=== PATIENT | female | born 1970 | race Caucasian/White ===

== ENCOUNTER → 2020-11-01 | Outpatient (REF) | payer BC | LOC: M SFHCWAGY 12:58 | PROVIDERS: ATTEND Advanced Practice Midwife | DX: Z12.4 Encounter for screening for malignant neoplasm of cervix (principal); Z01.419 Encounter for gynecological examination (general) (routine) without abnormal findings ==

== ENCOUNTER → 2020-11-01 | Outpatient (CLI) | payer BC ==
[2020-11-01 11:57] LABS: HEMATOCRIT 37.1 % (36.0-47.0); HEMOGLOBIN 11.5 g/dl (12.0-15.5); MEAN CORPUSCULAR HEMOGLOBIN 20.3 pg (27.0-33.0); MEAN CORPUSCULAR VOLUME 65.5 fl (80.0-96.0); PLATELET COUNT, AUTOMATED 463 10^3/uL (150-450); RED BLOOD COUNT 5.66 10^6/uL (4.00-5.40); WHITE BLOOD COUNT 5.9 10^3/uL (4.0-10.0)
[2020-11-01 13:15] LABS: ALBUMIN 3.5 GM/DL (3.2-5.2); ALT/SGPT 24 U/L (12-78); BILIRUBIN,TOTAL 0.4 MG/DL (0.2-1.0); BLOOD UREA NITROGEN 15 MG/DL (7-18); CALCIUM LEVEL 9.1 MG/DL (8.5-10.1); CARBON DIOXIDE LEVEL 29 MEQ/L (21-32); CHLORIDE LEVEL 108 MEQ/L (98-107); CHOLESTEROL LEVEL 218 MG/DL (<200); CHOLESTEROL RISK RATIO 3.633 (<5); CREATININE FOR GFR 0.66 MG/DL (0.55-1.30); FERRITIN 28 NG/ML (8-252); GLOMERULAR FILTRATION RATE > 60.0 (>51); GLUCOSE, FASTING 80 MG/DL (70-100); HDL CHOLESTEROL 60 MG/DL (>40); IRON (FE) 57 UG/DL (50-170); LDL CHOLESTEROL 146 MG/DL (<100); NON-HDL-C 158 MG/DL; PERCENT SATURATION 16.6 % (13.2-45.0); POTASSIUM SERUM 5.1 MEQ/L (3.5-5.1); SODIUM LEVEL 140 MEQ/L (136-145); TOTAL IRON BINDING CAPACITY 344 UG/DL (250-450); TOTAL PROTEIN 6.8 GM/DL (6.4-8.2); TRIGLYCERIDES LEVEL 62 MG/DL (<150)
== END ==
LOC: M PLALAB 07:25
PROVIDERS: ATTEND Nurse Practitioner Adult Health
DX: Z76.89 Persons encountering health services in other specified circumstances (principal)

== ENCOUNTER → 2020-11-27 | Outpatient (CLI) | payer BC ==
--- NOTE | 2020-11-27 12:24 | REP ---
INDICATION: MENORRHAGIA WITH REGULAR CYCLE COMPARISON: None. TECHNIQUE: Transabdominal pelvic ultrasound followed by transvaginal examination for better evaluation of the endometrium and adnexa with color Doppler evaluation of the ovaries. FINDINGS: Bladder is unremarkable and measures 13.8 x 8.3 x 8.6 cm. Heterogeneous anteverted uterus measures 11.6 x 4.9 x 7.2 cm. The endometrial complex measures 14 mm thickness. No discrete uterine or endometrial abnormalities are appreciated. Bilateral ovaries are normal in appearance and vascularity without evidence for torsion. Right ovary measures 4.0 x 2.6 x 3.6 cm with 3.6 cm presumed physiologic cyst/daughter cyst complex; R I = 0.67. Left ovary measures 3.8 x 2.7 x 2.8 cm with 3.3 cm presumed physiologic cyst/dominant follicle; R I = 0.49. IMPRESSION: 1. Thickened endometrial complex. No discrete uterine or endometrial abnormality identified. 2. Complex bilateral ovarian cysts likely physiologic. If the patient remains symptomatic consider re-evaluation in 4-6 weeks to evaluate for resolution of findings. <Electronically signed by Mazin Monreal > 11/27/20 0193
--- NOTE | 2020-11-27 12:44 | REPMRS ---
Patient History The patient states she had a clinical breast exam in October2020. No known family history of cancer. Patient states no breast complaints today. Patient has signed MRS History Sheet. Digital Woman Screen Mammo: November 27, 2020 - Exam #: [id number] Bilateral CC and MLO view(s) were taken. Technologist: Megan Diaz, Technologist No prior studies available for comparison. FINDINGS: There are scattered fibroglandular densities. The Volpara volumetric breast density category is: B. There is no evidence of dominant mass, architectural distortion, or grouped microcalcification typical of malignancy. 3-D tomosynthesis shows no additional findings. Assessment: BI-RADS/ACR category 1 mammogram. Negative Mammogram. Recommendation Routine screening mammogram of both breasts in 1 year (for women over age 40). This patient's [facility] Lifetime Breast Cancer RIsk is estimated at 9.4 %. This mammogram was interpreted with the aid of an FDA-approved computer-aided dectection system. Electronically Signed By: Juancho Hidalgo MD 11/27/20 2347
== END ==
LOC: M WHC 11:31
PROVIDERS: ATTEND Advanced Practice Midwife
DX: Z12.31 Encounter for screening mammogram for malignant neoplasm of breast (principal); N92.0 Excessive and frequent menstruation with regular cycle

== ENCOUNTER → 2020-12-13 | Outpatient (REF) | payer BC | LOC: M SFHCWAGY 15:16 | PROVIDERS: ATTEND Advanced Practice Midwife | DX: R93.89 Abnormal findings on diagnostic imaging of other specified body structures (principal); N92.1 Excessive and frequent menstruation with irregular cycle ==

== ENCOUNTER → 2021-03-13 | Outpatient (CLI) | payer BC | LOC: M WHC 11:31 | PROVIDERS: ATTEND Advanced Practice Midwife | DX: N83.201 Unspecified ovarian cyst, right side (principal); N83.202 Unspecified ovarian cyst, left side ==

== ENCOUNTER 2022-06-18 15:44 | Emergency (ER) | payer BC ==
[~2022-06-18] VITALS: Ht 170.2 cm; Wt 86.4 kg
[2022-06-18] MEDS ORDERED: PRED20TA PO (18:02)
[2022-06-18 18:33] VITALS: BP 124/81
== END 2022-06-18 18:39 | disposition home or self-care (01) ==
LOC: M ED 15:44
DX: M79.601 Pain in right arm (principal); R20.2 Paresthesia of skin; M79.7 Fibromyalgia

== ENCOUNTER → 2023-01-29 | Outpatient (CLI) | payer BC ==
[~2023-01-29] MED LIST: PRED20TA PO
[2023-01-29 11:06] LABS: HEMATOCRIT 36.4 % (36.0-47.0); HEMOGLOBIN 11.1 g/dl (12.0-15.5); MEAN CORPUSCULAR HEMOGLOBIN 19.9 pg (27.0-33.0); MEAN CORPUSCULAR HGB CONC 30.5 g/dl (32.0-36.5); MEAN CORPUSCULAR VOLUME 65.4 fl (80.0-96.0); PLATELET COUNT, AUTOMATED 473 10^3/uL (150-450); RED BLOOD COUNT 5.57 10^6/uL (4.00-5.40)
[2023-01-29 11:29] LABS: TOTAL IRON BINDING CAPACITY 350 UG/DL (250-425)
[2023-01-29 11:30] LABS: IRON (FE) 71 UG/DL (50-170); PERCENT SATURATION 20.3 % (13.2-45.0)
[2023-01-29 11:34] LABS: ALBUMIN 3.9 G/DL (3.2-5.2); ALKALINE PHOSPHATASE 81 U/L (46-116); ALT/SGPT 35 U/L (7.0-40); AST/SGOT 15 U/L (<34); BILIRUBIN,TOTAL 0.5 MG/DL (0.3-1.2); BLOOD UREA NITROGEN 14 MG/DL (9-23); CALCIUM LEVEL 9.1 MG/DL (8.5-10.1); CARBON DIOXIDE LEVEL 29 MMOL/L (20-31); CHLORIDE LEVEL 105 MMOL/L (98-107); CHOLESTEROL LEVEL 205 MG/DL (<200); CHOLESTEROL RISK RATIO 3.47 (<5); CREATININE FOR GFR 0.67 MG/DL (0.55-1.30); FERRITIN 19.7 NG/ML (7.3-270.7); GLOMERULAR FILTRATION RATE > 60.0 (>51); GLUCOSE, FASTING 83 MG/DL (60-100); LDL CHOLESTEROL 127.2 MG/DL (<100); POTASSIUM SERUM 4.4 MMOL/L (3.5-5.1); SODIUM LEVEL 137 MMOL/L (136-145); THYROID STIMULATING HORMONE 1.313 uIU/ML (0.55-4.78); TOTAL PROTEIN 6.8 G/DL (5.7-8.2); TRIGLYCERIDES LEVEL 94 MG/DL (<150)
== END ==
LOC: M WUC 09:06
PROVIDERS: ATTEND Nurse Practitioner Adult Health
DX: Z00.00 Encounter for general adult medical examination without abnormal findings (principal); D56.9 Thalassemia, unspecified; N92.6 Irregular menstruation, unspecified; Z13.220 Encounter for screening for lipoid disorders; Z13.29 Encounter for screening for other suspected endocrine disorder

== ENCOUNTER → 2023-04-30 | Outpatient (REF) | payer BC, OTHER | LOC: M SFHCWAGY 17:29 | PROVIDERS: ATTEND Nurse Practitioner Family | DX: Z12.4 Encounter for screening for malignant neoplasm of cervix (principal) | CPT/HCPCS: 87624; G0123 ==

== ENCOUNTER → 2023-06-16 | Outpatient (CLI) | payer BC | LOC: M WHC 10:09 | PROVIDERS: ATTEND Nurse Practitioner Adult Health | DX: Z12.31 Encounter for screening mammogram for malignant neoplasm of breast (principal) ==

== ENCOUNTER → 2023-07-03 | Outpatient (CLI) | payer BC | LOC: M WHC 07:54 | PROVIDERS: ATTEND Nurse Practitioner Adult Health | DX: Z12.31 Encounter for screening mammogram for malignant neoplasm of breast (principal) | CPT/HCPCS: 77065; G0279 ==

== ENCOUNTER 2024-03-31 07:23 | Day surgery (SDC) | payer BC ==
[~2024-03-31] VITALS: Ht 170.2 cm; Wt 86.2 kg
[2024-03-31] MEDS ORDERED: propofoL 200 MG/20 ML VIAL As Ordered ONE (07:52)
[2024-03-31] MEDS ORDERED: LIDOCAINE 2% 100MG/5ML SDV (FOR ANES.) As Ordered ONE (07:52)
[2024-03-31] MEDS ORDERED: ONDANSETRON 4MG 2ML VIAL As Ordered ONE (08:41)
[2024-03-31 09:07] VITALS: TEMP 97.9
[2024-03-31 09:29] VITALS: BP 107/64; O2SAT 99
== END 2024-03-31 09:30 | disposition home or self-care (01) ==
LOC: M OPP 07:23
PROVIDERS: ATTEND Internal Medicine Gastroenterology
DX: K64.0 First degree hemorrhoids (principal); D12.6 Benign neoplasm of colon, unspecified; K57.30 Diverticulosis of large intestine without perforation or abscess without bleeding
CPT/HCPCS: 45380; 88305; J2405

== ENCOUNTER → 2024-08-11 | Outpatient (REF) | payer BC ==
[2024-08-13 13:13] LABS: HPV APTIMA Not Detected (Not Detected)
== END ==
LOC: M SFHCWAGY 10:10
PROVIDERS: ATTEND Nurse Practitioner Family
DX: Z12.4 Encounter for screening for malignant neoplasm of cervix (principal); R87.610 Atypical squamous cells of undetermined significance on cytologic smear of cervix (ASC-US)

== ENCOUNTER → 2024-12-29 | Outpatient (REF) | payer BC | LOC: M SFHCDERM 17:33 | PROVIDERS: ATTEND Nurse Practitioner Family | DX: D49.2 Neoplasm of unspecified behavior of bone, soft tissue, and skin (principal) ==

== ENCOUNTER → 2025-01-14 | Outpatient (CLI) | payer BC ==
[2025-01-14 15:15] LABS: PLATELET COUNT, AUTOMATED 473 10^3/uL (150-450)
[2025-01-14 15:45] LABS: ALT/SGPT 24 U/L (7.0-40); AST/SGOT 17 U/L (<34); CALCIUM LEVEL 9.3 MG/DL (8.5-10.1); CARBON DIOXIDE LEVEL 28 MMOL/L (20-31); CHLORIDE LEVEL 105 MMOL/L (98-107); CHOLESTEROL LEVEL 191 MG/DL (<200); CHOLESTEROL RISK RATIO 3.62 (<5); CREATININE FOR GFR 0.71 MG/DL (0.55-1.30); GLOMERULAR FILTRATION RATE > 90.0 (>51); IRON (FE) 112 UG/DL (50-170); LDL CHOLESTEROL 113.5 MG/DL (<100); NON-HDL-C 138.3 MG/DL; PERCENT SATURATION 34.0 % (13.2-45.0); POTASSIUM SERUM 4.9 MMOL/L (3.5-5.1); SODIUM LEVEL 139 MMOL/L (136-145); TRIGLYCERIDES LEVEL 124 MG/DL (<150)
[2025-01-14 15:46] LABS: FREE T4 1.29 NG/DL (0.89-1.76)
== END ==
LOC: M WUC 08:14
PROVIDERS: ATTEND Nurse Practitioner Adult Health
DX: Z00.00 Encounter for general adult medical examination without abnormal findings (principal); D56.9 Thalassemia, unspecified; N92.6 Irregular menstruation, unspecified; Z13.29 Encounter for screening for other suspected endocrine disorder; E55.9 Vitamin D deficiency, unspecified; Z13.220 Encounter for screening for lipoid disorders